=== PATIENT | female | born 1990 | race Caucasian/White ===

== ENCOUNTER → 2021-04-24 | Outpatient (CLI) | payer OTHER ==
[2021-04-24 16:09] LABS: T4 (THYROXINE) 3.7 ug/dL (4.7-13.3); THYROID STIMULATING HORMONE 10.77 uIU/mL (0.36-3.74)
== END | disposition home or self-care (01) ==
LOC: LAB 14:06
PROVIDERS: ATTEND Dentist Oral and Maxillofacial Pathology
DX: Z46.9 Encounter for fitting and adjustment of unspecified device (principal)
CPT/HCPCS: 36415; 84436; 84439; 84443; 84479; 84481